=== PATIENT | male | born 1960 | race Caucasian/White ===

== ENCOUNTER → 2020-02-26 | Outpatient (CLI) | payer OTHER ==
[~2020-02-26] MED LIST: ALLP300T PO; ROSU10TA12 PO
== END ==
LOC: LABNPT 08:39
PROVIDERS: ATTEND Internal Medicine
DX: R50.9 Fever, unspecified (principal); Z20.828 Contact with and (suspected) exposure to other viral communicable diseases
CPT/HCPCS: 87635

== ENCOUNTER 2020-05-10 15:51 | Outpatient (RCR) | payer OTHER | END 2020-07-15 | disposition home or self-care (01) | PROVIDERS: ATTEND Internal Medicine | DX: M54.2 Cervicalgia (principal); M54.6 Pain in thoracic spine; R07.89 Other chest pain ==

== ENCOUNTER → 2021-01-03 | Outpatient (CLI) | payer OTHER | LOC: CARD 10:35 | PROVIDERS: ATTEND Internal Medicine | DX: R07.89 Other chest pain (principal) | CPT/HCPCS: 93005 ==

== ENCOUNTER 2021-07-25 07:59 | Outpatient (RCR) | payer OTHER | END 2021-08-09 | disposition home or self-care (01) | PROVIDERS: ATTEND Internal Medicine | DX: M25.552 Pain in left hip (principal); M54.50 Low back pain, unspecified ==